=== PATIENT | male | born 1990 | race African-American/Black ===

== ENCOUNTER 2025-08-06 14:37 | Emergency (ER) | payer MEDICAID ==
[2025-08-06] MEDS: MORPHINE SULFATE 4 MG/ML INJ (FOR IV/IM USE) IV ONE (14:49)
[2025-08-06] MEDS: SODIUM CHLORIDE 0.9% 2,000 ML IV ONE (14:50)
[2025-08-06 14:54] LABS: BASOPHILS % 0.6 % (0.0-2.0); EOSINOPHILS % 0.8 % (0.0-5.0); HEMATOCRIT. 42.0 % (42.0-52.0); HEMOGLOBIN. 13.9 g/dL (14.0-18.0); LYMPHOCYTES % 31.2 % (20.0-50.0); MEAN PLATELET VOLUME 7.6 fl (7.4-10.4); MONOCYTES % 5.9 % (2.0-8.0); NEUTROPHILS % 61.5 % (40.0-76.0); PLATELET 216 x1000/uL (130-400); RED BLOOD CELL COUNT 4.67 mill/uL (4.7-6.1); RED CELL DISTRIBUTION WIDTH 13.0 % (11.6-14.6)
[2025-08-06 15:04] LABS: INR 1.0
[2025-08-06 15:09] LABS: CREATININE 1.1 mg/dL (0.6-1.3); ETHANOL BLOOD < 10 mg/dL (<10); UREA NITROGEN BLOOD 8 mg/dL (9-23)
[2025-08-06 15:10] LABS: PROTEIN TOTAL 7.7 g/dL (6.0-8.3)
[2025-08-06 15:11] LABS: ASPARTATE AMINOTRANSFERASE 18 IU/L (<34); BILIRUBIN DIRECT 0.2 mg/dL (<=3.0); BILIRUBIN TOTAL 0.6 mg/dL (0.1-1.0)
[2025-08-06 15:15] VITALS: BP 92/71; PULSE 85; RESP 12; TEMP 37; O2SAT 99
== END 2025-08-06 15:48 | disposition short-term general hospital (02) ==
LOC: ER 14:37
DX: S81.832A Puncture wound without foreign body, left lower leg, initial encounter (principal); S81.831A Puncture wound without foreign body, right lower leg, initial encounter; Z88.0 Allergy status to penicillin; Z79.899 Other long term (current) drug therapy; W34.00XA Accidental discharge from unspecified firearms or gun, initial encounter; Y93.89 Activity, other specified; Y92.89 Other specified places as the place of occurrence of the external cause; Y99.8 Other external cause status
CPT/HCPCS: 80076; 80048; 80320; 83690; 85025; 85610; 85730; 86850; 86900; 86901; 36415; 71045; 72170; 73560; 73590; 93005; 96374; 99291; J2270; J7030; Z7610; G0480